=== PATIENT | male | born 1990 | race Caucasian/White ===

== ENCOUNTER 2016-10-14 01:15 | Emergency (ER) | payer SELFPAY ==
[~2016-10-14] VITALS: Ht 172.7 cm; Wt 74.8 kg
--- NOTE | 2016-10-14 01:15 | NUR ---
BIB WHEELCHAIR TO ER BED 5
--- NOTE | 2016-10-14 01:15 | NUR ---
Patient being evaluated by physician at bedside.
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
[2016-10-14 01:21] VITALS: BP 120/67
--- NOTE | 2016-10-14 01:25 | NUR ---
18GA BOTH A/C RT AND LT WITH LR BOULS GIVEN PER V.O. FROM ER MD DR GALLO-CHERY AT THIS TIME.
--- NOTE | 2016-10-14 01:35 | NUR ---
[facility] AT BEDSIDE.
--- NOTE | 2016-10-14 01:53 | NUR ---
[facility] ETA TO [facility] 10MINS 911. REPORT GIVEN TO MICN
[2016-10-14 01:55] VITALS: BP 128/72
--- NOTE | 2016-10-14 01:55 | NUR ---
Patient to be transferred to [facility]. Is being transferred due to CONTINUATION OF CARE. Receiving facility has accepting physician and available space. ER physician has signed transfer form. Patient or responsible republican has agreed to transfer and signed form. Patient belongings inventoried and will be sent with patient. Copy of nursing notes, lab reports, EKG, Physicians Orders and X-rays to be sent with patient. Report called to SOTO/JEAN MARIE at receiving facility. [facility] ambulance service has been called for transfer. ETA is 10MINS.
== END 2016-10-14 01:56 | disposition short-term general hospital (02) ==
LOC: MED 01:15
DX: S21.112A Laceration without foreign body of left front wall of thorax without penetration into thoracic cavity, initial encounter (principal); X99.8XXA Assault by other sharp object, initial encounter; Y93.89 Activity, other specified; Y92.59 Other trade areas as the place of occurrence of the external cause; Y99.8 Other external cause status